=== PATIENT | female | born 1960 | race Caucasian/White ===

== ENCOUNTER 2018-12-10 06:09 | Day surgery (SDC) | payer BC ==
[~2018-12-10] VITALS: Ht 170.2 cm; Wt 69.0 kg
[2018-12-10 07:25] VITALS: BP 113/78
[2018-12-10] MEDS ORDERED: BUDE3CAP6 PO (07:25)
[2018-12-10] MEDS ORDERED: SODIUM CHLORIDE 0.9% 1,000 ML IV SCH ×2 (07:30→08:00)
[2018-12-10] MEDS ORDERED: LIDOCAINE-MPF 1%, 5ML ONE (08:36)
[2018-12-10] MEDS ORDERED: FLUMAZENIL 0.1 MG/1 ML, 5ML ONE (08:59)
[2018-12-10] MEDS ORDERED: NALOXONE 1 MG/ML, 2ML ONE (08:59)
[2018-12-10] MEDS ORDERED: MIDAZOLAM 1 MG/ML, 5ML ONE ×2 (08:59)
[2018-12-10] MEDS ORDERED: FENTANYL PF 100 MCG/2ML ONE (08:59)
== END 2018-12-10 12:10 | disposition home or self-care (01) ==
LOC: OUT 06:09 → EDSTATUS 08:00 → OUT 12:10
PROVIDERS: ATTEND Internal Medicine Gastroenterology
DX: K75.9 Inflammatory liver disease, unspecified (principal); I47.1 Supraventricular tachycardia; Z85.3 Personal history of malignant neoplasm of breast
CPT/HCPCS: 47000; 76942; 88307; 88313; 99156; 99157; J2250; J3010; J7030; J2310